=== PATIENT | male | born 1985 | race Two or more races ===

== ENCOUNTER 2019-03-24 10:07 | Emergency (ER) | payer MEDICAID ==
[~2019-03-24] VITALS: Ht 175.3 cm; Wt 71.0 kg
[2019-03-24] MEDS ORDERED: BACITRACIN ZINC OINT UDPKT TOP ONE (14:30)
[2019-03-24] MEDS ORDERED: TETANUS, DIPHTHERIA, PERTUSSIS VAC/PF 0.5ML (>7YR OLD) IM ONE (14:30)
[2019-03-24] MEDS ORDERED: LIDOCAINE HCL 1% 20ML VIAL (Pyxis) INJ INFIL ONE (14:30)
[2019-03-24 17:18] VITALS: BP 120/58
== END 2019-03-24 17:20 | disposition home or self-care (01) ==
LOC: ER 10:07
DX: S61.011A Laceration without foreign body of right thumb without damage to nail, initial encounter (principal); W45.8XXA Other foreign body or object entering through skin, initial encounter; Y93.89 Activity, other specified; Y92.89 Other specified places as the place of occurrence of the external cause; Y99.8 Other external cause status
CPT/HCPCS: 12001; 73140; 99283; J3490; 90715

== ENCOUNTER 2021-06-29 18:20 | Emergency (ER) | payer MEDICAID ==
[~2021-06-29] VITALS: Ht 167.6 cm; Wt 68.0 kg
[2021-06-29 18:30] VITALS: BP 149/95
[2021-06-29] MEDS ORDERED: SODIUM CHLORIDE 0.9% 1,000 ML IV ONE (19:30)
[2021-06-29 19:41] LABS: BASOPHILS % 0.5 % (0.0-2.0); HEMOGLOBIN. 14.3 g/dL (14.0-18.0); LYMPHOCYTES % 12.5 % (20.0-50.0); MEAN CORPUSCULAR HEMOGLOBIN 33.2 pg (28.0-32.0); MEAN CORPUSCULAR VOLUME 97.8 fL (80.0-94.0); MEAN PLATELET VOLUME 8.3 fl (7.4-10.4); MONOCYTES % 13.5 % (2.0-8.0); NEUTROPHILS % 70.5 % (40.0-76.0); PLATELET 86 x1000/uL (130-400); RED CELL DISTRIBUTION WIDTH 12.8 % (11.6-14.6)
[2021-06-29 19:47] LABS: CHLORIDE 99 mEq/L (98-107)
== END 2021-06-29 20:01 | disposition left against medical advice (07) ==
LOC: ER 18:20
DX: F10.129 Alcohol abuse with intoxication, unspecified (principal); R00.2 Palpitations; Y90.9 Presence of alcohol in blood, level not specified
CPT/HCPCS: 36415; 80053; 84443; 85025; 96360; 99283; J7030

== ENCOUNTER 2021-08-11 17:04 | Inpatient (IN) | payer MEDICAID ==
[~2021-08-11] VITALS: Ht 167.6 cm; Wt 75.7 kg
[2021-08-11] MEDS ORDERED: DIGOXIN 500MCG/2ML AMP IV ONE (18:15)
[2021-08-11] MEDS ORDERED: DILTIAZEM HCL 5MG/ML 5ML VIAL IV ONE ×2 (18:15→22:45)
[2021-08-11 18:29] LABS: BASOPHILS % 0.8 % (0.0-2.0); HEMATOCRIT. 46.2 % (42.0-52.0); HEMOGLOBIN. 15.6 g/dL (14.0-18.0); LYMPHOCYTES % 27.8 % (20.0-50.0); MEAN CORPUSCULAR HEMOGLOBIN 34.7 pg (28.0-32.0); MEAN CORPUSCULAR VOLUME 103.1 fL (80.0-94.0); MEAN PLATELET VOLUME 8.8 fl (7.4-10.4); MONOCYTES % 10.1 % (2.0-8.0); NEUTROPHILS % 60.3 % (40.0-76.0); PLATELET 124 x1000/uL (130-400); RED BLOOD CELL COUNT 4.48 mill/uL (4.7-6.1)
[2021-08-11] MEDS ORDERED: PANTOPRAZOLE SODIUM 40 MG/VIAL IV SCH (19:00)
[2021-08-11] MEDS ORDERED: LACTATED RINGERS 1,000 ML IV SCH (19:00)
[2021-08-11 19:33] LABS: CHLORIDE 100 mEq/L (98-107)
[2021-08-11 19:48] LABS: ETHANOL BLOOD 318 mg/dL
[2021-08-11] MEDS ORDERED: DOCUSATE SODIUM 100MG CAPSULE PO PRN (21:30)
[2021-08-11] MEDS ORDERED: DIPHENHYDRAMINE 50MG/ML VIAL IV PRN (21:30)
[2021-08-11] MEDS ORDERED: MVI, ADULT NO.1 10 ML, FOLIC ACID 1 MG, THIAMINE HCL 100 MG in SODIUM CHLORIDE 0.9% 1,0... IV NR (21:30)
[2021-08-11] MEDS ORDERED: HYDRALAZINE 20MG/ML VIAL IV PRN (21:30)
[2021-08-11] MEDS ORDERED: ACETAMINOPHEN 325MG TABLET PO PRN (21:30)
[2021-08-11] MEDS ORDERED: ONDANSETRON HCL 4MG/2ML INJ IV PRN (21:30)
[2021-08-11] MEDS ORDERED: CLONIDINE 0.1MG TABLET PO PRN (21:30)
[2021-08-11] MEDS ORDERED: MAGNESIUM/ALUMINUM HYDROXIDE/SIMETHICONE 30ML UDC PO PRN (21:30)
[2021-08-11] MEDS ORDERED: MORPHINE SULFATE 2 MG/ML CPJ (NOT FOR IM USE) IV PRN (21:30)
[2021-08-11] MEDS ORDERED: IPRATROPIUM/ALBUTEROL 0.5-3(2.5)MG/3ML NEB HHN PRN (21:30)
[2021-08-11] MEDS ORDERED: GUAIFENESIN 200MG/10ML SUGAR FREE UDC PO PRN (21:30)
[2021-08-11] MEDS ORDERED: DILTIAZEM HCL 5MG/ML 5ML VIAL IV PRN (21:45)
[2021-08-11] MEDS: SODIUM CHLORIDE 0.9% INJ 3ML FLUSH IVF SCH (22:00)
[2021-08-11 22:21] LABS: CLARITY URINE CLEAR (CLEAR); COLOR URINE YELLOW (YELLOW); KETONES URINE NEGATIVE (NEGATIVE); LEUKOCYTE ESTERASE URINE NEGATIVE (NEGATIVE); NITRITE URINE NEGATIVE (NEGATIVE); OCCULT BLOOD URINE TRACE (NEGATIVE); PROTEIN URINE 1+ (NEGATIVE)
[2021-08-11] MEDS ORDERED: LEVOFLOXACIN 500MG PREMIX 100 ML IV SCH (22:30)
[2021-08-11 22:39] LABS: *AMPHETAMINES SCREEN URINE NEGATIVE (NEGATIVE); *BARBITURATES SCREEN URINE NEGATIVE (NEGATIVE); *BENZODIAZEPINES SCREEN URINE NEGATIVE (NEGATIVE); *COCAINE SCREEN URINE NEGATIVE (NEGATIVE); METHADONE URINE SCREEN PRESUMTIVE POSITIVE (NEGATIVE); OPIATES URINE SCREEN NEGATIVE (NEGATIVE); PHENCYCLIDINE URINE SCREEN NEGATIVE (NEGATIVE)
[2021-08-11 22:40] LABS: CANNABINOID URINE SCREEN NEGATIVE (NEGATIVE)
[2021-08-11] MEDS ORDERED: METOCLOPRAMIDE HCL 10MG/2ML VIAL IV ONE (22:45)
[2021-08-11] MEDS ORDERED: DILTIAZEM HCL 120MG CAPSULE CD 24HR PO ONE (22:45)
[2021-08-12 04:51] LABS: HEMATOCRIT. 40.2 % (42.0-52.0); HEMOGLOBIN. 13.9 g/dL (14.0-18.0); MEAN CORPUSCULAR HEMOGLOBIN 34.1 pg (28.0-32.0); MEAN CORPUSCULAR VOLUME 98.8 fL (80.0-94.0); MEAN PLATELET VOLUME 8.1 fl (7.4-10.4); PLATELET 102 x1000/uL (130-400); RED BLOOD CELL COUNT 4.07 mill/uL (4.7-6.1); RED CELL DISTRIBUTION WIDTH 13.4 % (11.6-14.6)
[2021-08-12 04:56] LABS: CHLORIDE 95 mEq/L (98-107)
[2021-08-12 05:34] LABS: PLATELET ESTIMATE SLIGHTLY DECREASED
[2021-08-12] MEDS: SODIUM CHLORIDE 0.9% INJ 3ML FLUSH IVF SCH ×3 (07:57→21:04)
[2021-08-12 10:00] VITALS: BP 147/82
[2021-08-12 10:30] VITALS: BP 147/82
[2021-08-12] MEDS: CHLORDIAZEPOXIDE 25MG CAPSULE PO SCH ×3 (10:33→21:04)
[2021-08-12] MEDS: LORAZEPAM 2MG/ML CPJ IV PRN (10:34)
[2021-08-12] MEDS ORDERED: POTASSIUM CHLORIDE 20MEQ TABLET SR PO SCH (11:15)
[2021-08-12 12:00] VITALS: BP 136/84
[2021-08-12] MEDS: DILTIAZEM HCL 90MG TABLET PO SCH ×3 (12:10→23:57)
[2021-08-12] MEDS ORDERED: MAGNESIUM 2 G PREMIX 50 ML IV ONE (13:00)
[2021-08-12] MEDS: FOLIC ACID 1 MG, THIAMINE HCL 100 MG, MVI, ADULT NO.1 10 ML in DEXTROSE 5% WATER 1,000 ML IV SCH (15:12)
[2021-08-12] MEDS ORDERED: NALOXONE HCL 0.4MG/ML VIAL IV PRN (15:45)
[2021-08-12 16:00] VITALS: BP 116/91
[2021-08-12] MEDS: PANTOPRAZOLE SODIUM 40 MG/VIAL IV SCH (17:54)
[2021-08-12] MEDS ORDERED: LEVOFLOXACIN 500MG PREMIX 100 ML IV SCH (18:00)
[2021-08-12 20:00] VITALS: BP 144/90
[2021-08-13] VITALS: BP 145/87
[2021-08-13] MEDS: LORAZEPAM 2MG/ML CPJ IV PRN (01:21)
[2021-08-13 04:00] VITALS: BP 121/63
[2021-08-13] MEDS: CHLORDIAZEPOXIDE 25MG CAPSULE PO SCH ×2 (05:23→13:26)
[2021-08-13] MEDS: PANTOPRAZOLE SODIUM 40 MG/VIAL IV SCH (05:23)
[2021-08-13] MEDS: SODIUM CHLORIDE 0.9% INJ 3ML FLUSH IVF SCH ×2 (05:24→13:11)
[2021-08-13] MEDS: DILTIAZEM HCL 90MG TABLET PO SCH ×2 (05:24→12:00)
[2021-08-13 07:23] LABS: HEMOGLOBIN. 14.1 g/dL (14.0-18.0); MEAN CORPUSCULAR HEMOGLOBIN 34.4 pg (28.0-32.0); MEAN CORPUSCULAR VOLUME 99.6 fL (80.0-94.0); MEAN PLATELET VOLUME 8.7 fl (7.4-10.4); PLATELET 85 x1000/uL (130-400); RED BLOOD CELL COUNT 4.12 mill/uL (4.7-6.1); RED CELL DISTRIBUTION WIDTH 12.7 % (11.6-14.6)
[2021-08-13 07:35] LABS: CHLORIDE 87 mEq/L (98-107)
[2021-08-13 07:41] LABS: AMYLASE 218 IU/L (25-115)
[2021-08-13 07:45] LABS: CREATINE KINASE 146 IU/L (39-308); CREATINE KINASE MB FRACTION 1.8 ng/mL (0.5-3.6)
[2021-08-13 08:00] VITALS: BP 95/68
[2021-08-13 08:04] LABS: HEPATITIS B SURFACE ANTIGEN NEGATIVE
[2021-08-13] MEDS: FOLIC ACID 1 MG, THIAMINE HCL 100 MG, MVI, ADULT NO.1 10 ML in DEXTROSE 5% WATER 1,000 ML IV SCH (08:24)
[2021-08-13 10:01] LABS: PLATELET ESTIMATE DECREASED
[2021-08-13 12:00] VITALS: BP 102/63
== END 2021-08-13 14:40 | disposition left against medical advice (07) | DRG 243 ==
LOC: ER 17:04 → MICUSO 20:57 → 8WST 08-12 07:41
PROVIDERS: ADMIT Internal Medicine; ATTEND Internal Medicine
DX: K20.91 Esophagitis, unspecified with bleeding (principal); J69.0 Pneumonitis due to inhalation of food and vomit; G92.8 Other toxic encephalopathy; K27.4 Chronic or unspecified peptic ulcer, site unspecified, with hemorrhage; K92.0 Hematemesis; K29.61 Other gastritis with bleeding; D69.59 Other secondary thrombocytopenia; Y90.8 Blood alcohol level of 240 mg/100 ml or more; I48.91 Unspecified atrial fibrillation; F10.129 Alcohol abuse with intoxication, unspecified; F10.139 Alcohol abuse with withdrawal, unspecified; K76.0 Fatty (change of) liver, not elsewhere classified; F17.210 Nicotine dependence, cigarettes, uncomplicated; D53.9 Nutritional anemia, unspecified; Z59.00 Homelessness unspecified
CPT/HCPCS: 36415; 71045; 76700; 80048; 80053; 80076; 80305; 80320; 81003; 82140; 82150; 82248; 82550; 82553; 82962; 83036; 83735; 84443; 84484; 85025; 85379; 86705; 86709; 86803; 86850; 86900; 87340; 93005; 93306; 93970; 99291; C1893; C9113; J1160; J1956; J2060; J2270; J2405; J2765; J3411; J3475; J3490; J7030; J7040; J7070; G0480

== ENCOUNTER 2023-10-27 12:06 | Emergency (ER) | payer MEDICAID ==
[~2023-10-27] VITALS: Ht 165.1 cm; Wt 71.0 kg
[2023-10-27 12:18] VITALS: O2SAT 98
[2023-10-27 12:47] LABS: EOSINOPHILS % 2.4 % (0.0-5.0); HEMATOCRIT. 43.6 % (42.0-52.0); MEAN CORPUSCULAR HEMOGLOBIN 32.6 pg (28.0-32.0); MEAN CORPUSCULAR HGB CONC 34.5 g/dL (31.0-37.0); MEAN CORPUSCULAR VOLUME 94.4 fL (80.0-94.0); MEAN PLATELET VOLUME 8.5 fl (7.4-10.4); MONOCYTES % 14.8 % (2.0-8.0); NEUTROPHILS % 66.8 % (40.0-76.0); PLATELET 191 x1000/uL (130-400); RED BLOOD CELL COUNT 4.62 mill/uL (4.7-6.1); RED CELL DISTRIBUTION WIDTH 13.4 % (11.6-14.6); WHITE BLOOD COUNT 5.2 x1000/uL (4.5-11.0)
[2023-10-27 13:04] LABS: ALANINE AMINOTRANSFERASE 99 IU/L (10-49); ALBUMIN 4.4 g/dL (3.2-4.8); ASPARTATE AMINOTRANSFERASE 104 IU/L (<34); BILIRUBIN TOTAL 1.1 mg/dL (0.1-1.0); CALCIUM 9.4 mg/dL (8.7-10.4); CARBON DIOXIDE 29 mEq/L (21-32); CHLORIDE 94 mEq/L (98-107); CREATININE 0.5 mg/dL (0.6-1.3); GLUCOSE 88 mg/dL (70-105); POTASSIUM 3.3 mEq/L (3.5-5.1); PROTEIN TOTAL 8.2 g/dL (6.0-8.3); SODIUM 132 mEq/L (136-145); UREA NITROGEN BLOOD 14 mg/dL (9-23)
[2023-10-27 13:22] LABS: TROPONIN I HIGH SENSITIVITY < 4 ng/L (3.0-53)
[2023-10-27] MEDS ORDERED: AZIT250T12 MT (23:18)
[2023-10-28 00:13] VITALS: BP 127/86; PULSE 82; RESP 18; TEMP 98.2
== END 2023-10-28 00:17 | disposition home or self-care (01) ==
LOC: ER 12:06
DX: R00.2 Palpitations (principal)
CPT/HCPCS: 36415; 71045; 80053; 84484; 85025; 93005; 99285